=== PATIENT | male | born 1995 | race Caucasian/White ===

== ENCOUNTER 2019-04-05 17:31 | Emergency (ER) | payer BC ==
[~2019-04-05] VITALS: Ht 167.6 cm; Wt 81.2 kg
[2019-04-05 17:54] VITALS: BP 123/86; Ht 167.6 cm; Wt 81.2 kg
== END 2019-04-05 19:30 | disposition left against medical advice (07) ==
LOC: ED 17:31
DX: Z53.21 Procedure and treatment not carried out due to patient leaving prior to being seen by health care provider (principal)